=== PATIENT | male | born 1975 | race Caucasian/White ===

== ENCOUNTER 2017-01-23 08:35 | Emergency (ER) | payer BC ==
[2017-01-23 08:48] VITALS: BP 170/81; PULSE 78; RESP 18; TEMP 99; O2SAT 96
--- NOTE | 2017-01-23 09:02 | EDPHY ---
H & P Stated Complaint: c/o 30 day old insect [place] Time Seen by Provider: 01/23/17 08:48 HPI/ROS: Chief Complaint: Skin rash HPI: 5-year-old male was bitten on his right shoulder by some sort of insect he believes or his traveling in [place] about a month ago. Patient developed an ulcerated lesion on his right shoulder. He developed large amount of erythema around it. He did not seek medical attention but did start some antibiotics and given him by his sister. He took these for 3 days. The area seemed improved over the course of the last week he has had worsening redness around the site again. Denies any fevers or chills. Has never been painful. No body aches or pains. For no nausea or vomiting. No chest pain shortness of breath. ROS: 10 point Review of Systems is negative except as noted in the HPI. PMH: Denies Family History: [non-contributory] Physical Exam: General: Awake, alert, no acute distress Right shoulder, there is an area of a healing ulceration with intact dermis. There is straight surrounding 15 cm of erythema. It is mildly warm to the touch. Is not tender. He has no lymphadenopathy. Neuro: Cranial nerves 2-12 intact. Strength is 5 in 5 in bilateral upper lower extremities - Personal History Current Tetanus Diphtheria and Acellular Pertussis (TDAP): Yes - Medical/Surgical History Other PMH: appy - Social History Smoking Status: Never smoked Constitutional: Initial Vital Signs Temperature (C) 37.2 C 01/23/17 08:46 Heart Rate 78 01/23/17 08:46 Respiratory Rate 18 01/23/17 08:46 Blood Pressure 170/81 H 01/23/17 08:46 O2 Sat (%) 96 01/23/17 08:46 O2 Delivery Mode Room Air Allergies/Adverse Reactions: No Known Allergies Allergy (Unverified 01/23/17 08:46) Home Medications: Medication Instructions Recorded Cephalexin [Keflex (*)] 500 mg PO Q6H #40 cap 01/23/17 Medical Decision Making ED Course/Re-evaluation: Patient had some sort of skin lesion after which she developed a cellulitis. I have reviewed pictures on his iPhone. There is certainly ulcerated lesion with surrounding cellulitis. He in adequately treated this with 3 days of antibiotics and is not coming back. Initially was 1 month ago. He has had no other lesions are. Is not a target lesion in appearance to suggest Lyme disease. There was ulceration however is not painful. Possibilities include spider bite such as a brown recluse. This did happen [place] when he was camping. Right now will be treating him as a partially treated cellulitis. Will start him on Keflex. He will follow up with primary care physician, Dr. Lauren 4-5 days to make sure he is improving. Will return for worsening. Departure - Departure Disposition: Home, Routine, Self-Care Clinical Impression: Cellulitis Condition: Good Instructions: Cellulitis (ED) Additional Instructions: Please take your full course of antibiotics. Follow up with your primary care physician in 4-5 days for recheck. Return to the emergency department for increasing redness, fevers, chills, nausea, vomiting, or any other concerns. Referrals: Jazz Lauren MD [[facility] [place] Primary Care Provider] - As per Instructions Prescriptions: Cephalexin [Keflex (*)] 500 mg PO Q6H #40 cap
== END 2017-01-23 09:15 | disposition home or self-care (01) ==
LOC: CED 08:35
DX: L03.113 Cellulitis of right upper limb (principal)